=== PATIENT | male | born 1995 | race Caucasian/White ===

== ENCOUNTER 2018-05-13 18:51 | Emergency (ER) | payer SELFPAY ==
[~2018-05-13] VITALS: Ht 167.6 cm; Wt 86.0 kg
[~2018-05-13 18:51] MED LIST: MOTRIN800 MG OR; NO; NO HOME MEDS; ULTRAM50 M1 PO
[2018-05-13] MEDS ORDERED: BENADRYL 50MG C50 MG PO (19:22)
[2018-05-13] MEDS ORDERED: MEDDOSEPAK PO (19:22)
[2018-05-13] MEDS ORDERED: BENADRY2 EX (19:22)
[2018-05-13 19:55] VITALS: BP 139/79
== END 2018-05-13 19:55 | disposition home or self-care (01) | DRG 607 ==
LOC: ED 18:51
DX: L24.5 Irritant contact dermatitis due to other chemical products (principal)